=== PATIENT | female | born 1980 | race Asian ===

== ENCOUNTER 2017-03-29 14:00 | Inpatient (IN) | payer SELFPAY ==
[~2017-03-29] VITALS: Ht 157.5 cm; Wt 61.2 kg
[2017-03-29] MEDS ORDERED: IRON65TA11 PO (14:29)
[2017-03-29] MEDS ORDERED: LACTATED RINGERS 1,000 ML IV SCH (14:30)
[2017-03-29 15:08] LABS: BASOPHILS % (AUTO) 0.2 % (0.0-2.0); EOSINOPHILS # (AUTO) 0.2 K/uL (0-0.4); EOSINOPHILS % (AUTO) 1.8 % (0.0-4.0); HEMATOCRIT 35.5 % (36-48); HEMOGLOBIN 11.7 g/dL (12.0-16.0); LYMPHOCYTES # (AUTO) 1.3 K/uL (2.5-16.5); LYMPHOCYTES % (AUTO) 12.8 % (20.5-51.1); MEAN CORPUSCULAR HEMOGLOBIN 30 pg (27-31); MEAN CORPUSCULAR HGB CONC 33 g/dL (33-37); MEAN CORPUSCULAR VOLUME 93 fL (80-94); MONOCYTES # (AUTO) 0.6 K/uL (0.8-1.0); MONOCYTES % (AUTO) 5.5 % (1.7-9.3); NEUTROPHILS % (AUTO) 79.7 % (42.2-75.2); PLATELET COUNT (AUTO) 175 K/uL (140-450); RED BLOOD CELL COUNT(AUTO) 3.84 MIL/uL (4.20-5.40); RED CELL DISTRIBUTION WIDTH 15.9 % (11.6-13.7); WHITE BLOOD COUNT (AUTO) 10.1 K/uL (4.8-10.8)
[2017-03-29 15:19] LABS: APPEARANCE,URINE CLEAR (CLEAR); BILIRUBIN,URINE NEGATIVE (NEGATIVE); BLOOD, URINE 2+ (NEGATIVE); COLOR,URINE YELLOW (YELLOW); LEUKOCYTE ESTERASE ,URINE NEGATIVE (NEGATIVE); NITRITE, URINE NEGATIVE (NEGATIVE); PH,URINE 6.5 (5.0-9.0); PROTEIN,URINE 1+ (NEGATIVE); UGLUCOSE NEGATIVE (NEGATIVE)
[2017-03-29 15:33] LABS: BACTERIA,URINE FEW /HPF (None Seen); RBC,URINE 0-5 (RARE) /HPF (0-5); SQUAMOUS EPITHELIAL CELL,UR RARE /LPF (0-3 (FEW)); WBC,URINE 0-5 (RARE) /HPF (0-5)
[2017-03-29] MEDS ORDERED: CITRIC ACID/SODIUM CITRATE 30 ML UDC PO SCH (16:00)
[2017-03-29] MEDS ORDERED: CITRIC ACID/SODIUM CITRATE 30 ML UDC ONE (16:01)
[2017-03-29] MEDS ORDERED: OXYTOCIN 10 UNITS/ML VIAL ONE ×2 (16:09→16:17)
[2017-03-29] MEDS ORDERED: TRIAMCINOLONE 40 MG/ML 5ML VIAL ONE (16:09)
[2017-03-29] MEDS ORDERED: ePHEDrine 50 MG/ML VIAL ONE (16:17)
[2017-03-29] MEDS ORDERED: ceFAZolin 1,000 MG VIAL ONE (16:17)
[2017-03-29] MEDS ORDERED: MORPHINE PRES FREE 10 MG/10 ML AMP IV ONE (16:29)
[2017-03-29] MEDS ORDERED: fentaNYL 0.05 MG/ML VIAL ONE (16:29)
[2017-03-29] MEDS ORDERED: NALBUPHINE 10 MG/ML AMP IVP PRN (16:45)
[2017-03-29] MEDS ORDERED: KETOROLAC 60 MG/2 ML VIAL IM PRN (16:45)
[2017-03-29] MEDS ORDERED: ONDANSETRON 4 MG/2 ML VIAL IVP PRN ×2 (16:45)
[2017-03-29] MEDS ORDERED: diphenhydrAMINE 50 MG/ML VIAL IVP PRN (16:45)
[2017-03-29] MEDS ORDERED: BLOOD GLUCOSE MONITORING 1 DEV DEV FS ONE (16:45)
[2017-03-29] MEDS ORDERED: NALOXONE 0.4 MG/ML VIAL IVP PRN ×3 (16:45)
[2017-03-29] MEDS ORDERED: MEASLES, MUMPS, AND RUBELLA 1 VIAL SQVAC PRN (17:00)
[2017-03-29] MEDS ORDERED: METHYLERGONOVINE 0.2 MG/ML AMP IM PRN (17:00)
[2017-03-29] MEDS ORDERED: SIMETHICONE 80 MG TAB.CHEW PO PRN (17:00)
[2017-03-29] MEDS ORDERED: TRIMETHOBENZAMIDE 200 MG/2 ML SYR IM PRN (17:00)
[2017-03-29] MEDS ORDERED: oxyCODONE/APAP 5/325 MG 1 TAB TAB PO PRN (17:00)
[2017-03-29] MEDS ORDERED: TEMAZEPAM 15 MG CAP PO PRN (17:00)
[2017-03-29] MEDS ORDERED: OXYTOCIN 20 UNITS/LR PREMIX 1,000 ML IV ONE (17:20)
[2017-03-29] MEDS ORDERED: diphenhydrAMINE 50 MG/ML VIAL ONE (17:20)
[2017-03-29] MEDS ORDERED: diphenhydrAMINE 50 MG/ML VIAL IVP SCH (17:25)
[2017-03-29] MEDS: DOCUSATE SOD/SENNA 50/8.6 MG 1 TAB PO SCH (21:00)
[2017-03-30] MEDS: OXYTOCIN 20 UNITS/LR PREMIX 1,000 ML IV SCH ×2 (02:50→09:40)
[2017-03-30 05:24] LABS: BASOPHILS # (AUTO) 0.1 K/uL (0.00-0.22); BASOPHILS % (AUTO) 0.5 % (0.0-2.0); EOSINOPHILS # (AUTO) 0.3 K/uL (0-0.4); EOSINOPHILS % (AUTO) 1.9 % (0.0-4.0); HEMATOCRIT 33.5 % (36-48); HEMOGLOBIN 10.8 g/dL (12.0-16.0); LYMPHOCYTES # (AUTO) 1.3 K/uL (2.5-16.5); LYMPHOCYTES % (AUTO) 9.8 % (20.5-51.1); MEAN CORPUSCULAR HEMOGLOBIN 30 pg (27-31); MEAN CORPUSCULAR HGB CONC 32 g/dL (33-37); MEAN CORPUSCULAR VOLUME 92 fL (80-94); MONOCYTES # (AUTO) 0.6 K/uL (0.8-1.0); MONOCYTES % (AUTO) 4.6 % (1.7-9.3); NEUTROPHILS # (AUTO) 10.9 K/uL (1.8-7.7); NEUTROPHILS % (AUTO) 83.2 % (42.2-75.2); PLATELET COUNT (AUTO) 166 K/uL (140-450); RED BLOOD CELL COUNT(AUTO) 3.62 MIL/uL (4.20-5.40); RED CELL DISTRIBUTION WIDTH 16.3 % (11.6-13.7)
[2017-03-30 07:17] LABS: WHITE BLOOD COUNT (AUTO) 13.2 K/uL (4.8-10.8)
--- NOTE | 2017-03-30 08:31 | NUR ---
PATIENT HAS BEEN SCREENED AND CATEGORIZED LOW NUTRITION RISK. PATIENT WILL BE SEEN WITHIN 7 DAYS OF ADMISSION. 04/05/[address]
[2017-03-30] MEDS ORDERED: KETOROLAC 30 MG/ML VIAL IVP PRN (09:45)
[2017-03-30] MEDS: HYDROcodone/APAP 5/325 MG 1 TAB TAB PO PRN ×2 (17:39→22:22)
[2017-03-30] MEDS: DOCUSATE SOD/SENNA 50/8.6 MG 1 TAB PO SCH (21:25)
[2017-03-31] MEDS: IBUPROFEN 800 MG TAB PO PRN ×2 (05:53→16:37)
[2017-03-31 09:07] LABS: HEPATITIS B SURFACE ANTIGEN Negative (Negative); RUBELLA IGM ANTIBODY <20.0 AU/mL (0.0-19.9)
[2017-03-31] MEDS: diphenhydrAMINE 50 MG CAP PO PRN (09:49)
[2017-03-31] MEDS: HYDROcodone/APAP 5/325 MG 1 TAB TAB PO PRN (16:40)
[2017-03-31] MEDS ORDERED: BISACODYL 5 MG TABEC PO PRN (16:45)
[2017-03-31] MEDS ORDERED: SODIUM PHOSPHATE 118 ML ENEM RC SCH (21:00)
[2017-03-31] MEDS: DOCUSATE SOD/SENNA 50/8.6 MG 1 TAB PO SCH (21:36)
[2017-04-01] MEDS: HYDROcodone/APAP 5/325 MG 1 TAB TAB PO PRN (04:22)
[2017-04-01] MEDS: diphenhydrAMINE 50 MG CAP PO PRN (11:48)
== END 2017-04-01 15:50 | disposition home or self-care (01) | DRG 766 ==
LOC: MLD 14:00 → MFCC 17:01
PROVIDERS: ADMIT Obstetrics & Gynecology; ATTEND Obstetrics & Gynecology
PROC: 10D00Z1 Extraction of Products of Conception, Low, Open Approach (ICD-10-PCS; principal; 2017-03-29 16:00)
PROC: 3E0234Z Introduction of Serum, Toxoid and Vaccine into Muscle, Percutaneous Approach (ICD-10-PCS; 2017-03-31)
DX: O34.211 Maternal care for low transverse scar from previous cesarean delivery (principal); O09.523 Supervision of elderly multigravida, third trimester; Z37.0 Single live birth; Z3A.39 39 weeks gestation of pregnancy; Z86.32 Personal history of gestational diabetes; Z23 Encounter for immunization
CPT/HCPCS: 36415; 51702; 81001; 82947; 82948; 85025; 86592; 86762; 86886; 86900; 86901; 87340; 90715; J0690; J1200; J1885; J2270; J2590; J3010; J3301; J7060; J7120; Q0163